=== PATIENT | male | born 1985 | race Caucasian/White ===

== ENCOUNTER → 2016-03-24 | Outpatient (CLI) | payer OTHER ==
[~2016-03-24] MED LIST: Z.0.NO CURRENT MEDS
[2016-03-24 08:01] LABS: HEMATOCRIT 42.3 % (39.0-51.0); MEAN CELL VOLUME 80.7 FL (80.0-100.0); MEAN CORPUSCULAR HEMOGLOBIN 27.4 PG (27.0-34.0); PLATELET COUNT 239 TH/MM3 (150-450); RED BLOOD COUNT 5.24 MIL/MM3 (4.50-5.90); RED CELL DISTRIBUTION WIDTH 13.5 % (11.6-17.2); REVIEW FLAG FINAL; WHITE BLOOD COUNT 6.5 TH/MM3 (4.0-11.0)
[2016-03-24 08:30] LABS: ALKALINE PHOSPHATASE 135 U/L (45-117); ALT (GPT) 50 U/L (12-78); ANION GAP 6 MEQ/L (5-15); AST (GOT) 20 U/L (15-37); BICARBONATE 29.7 MEQ/L (21.0-32.0); BLOOD UREA NITROGEN 9 MG/DL (7-18); CHLORIDE 103 MEQ/L (98-107); GLOMERULAR FILTRATION RATE 86 ML/MIN (>89); GLUCOSE,FASTING 90 MG/DL (74-99); HDL CHOLESTEROL 34.7 MG/DL (40.0-60.0); LDL CHOLESTEROL 89 MG/DL (0-99); POTASSIUM 3.9 MEQ/L (3.5-5.1); SODIUM (NA) 139 MEQ/L (136-145); TOTAL BILIRUBIN ADULT 0.6 MG/DL (0.2-1.0)
== END ==
LOC: CLAB 07:39
PROVIDERS: ATTEND Family Medicine
DX: I11.9 Hypertensive heart disease without heart failure (principal); R94.31 Abnormal electrocardiogram [ECG] [EKG]; E66.09 Other obesity due to excess calories; E78.00 Pure hypercholesterolemia, unspecified; R00.0 Tachycardia, unspecified; R00.2 Palpitations
CPT/HCPCS: 36415; 80053; 80061; 85027